=== PATIENT | male | born 1945 | race Caucasian/White ===

== ENCOUNTER → 2017-12-09 | Outpatient (CLI) | payer OTHER ==
[~2017-12-09] MED LIST: ACET325T14 PO; AMOX1TAB64 PO; HYDR-3343 PO; RIVA15TA PO
== END | disposition home or self-care (01) ==
LOC: RAD 11:09
PROVIDERS: ATTEND Family Medicine
DX: I26.99 Other pulmonary embolism without acute cor pulmonale (principal); J18.9 Pneumonia, unspecified organism
CPT/HCPCS: 71046

== ENCOUNTER → 2018-01-13 | Outpatient (CLI) | payer OTHER, MEDICARE | END | disposition home or self-care (01) | LOC: RAD 14:14 | PROVIDERS: ATTEND Family Medicine | DX: J18.9 Pneumonia, unspecified organism (principal) | CPT/HCPCS: 71046 ==

== ENCOUNTER → 2018-04-30 | Outpatient (CLI) | payer MEDICARE, OTHER ==
[~2018-04-30] MED LIST changes: +OMNIPAQUE 350 MG/ML, 75ML BOTTLE ONE
== END | disposition home or self-care (01) ==
LOC: CFH 10:31
PROVIDERS: ATTEND Family Medicine
DX: J98.11 Atelectasis (principal); K76.89 Other specified diseases of liver
CPT/HCPCS: 71260; 82565; Q9967